=== PATIENT | female | born 1985 | race Caucasian/White ===

== ENCOUNTER → 2017-02-19 | Outpatient (CLI) | payer MEDICARE, MEDICAID ==
--- NOTE | 2017-02-19 09:07 | RADIOLOGY REPORT (SQ) ---
EXAM DESCRIPTION: U/S ABDOMEN LIMITED W/O DOP COMPLETED DATE/TIME: 02/19/2017 8:23 am REASON FOR STUDY: ABN LFT (R94.5) R94.5 ABNORMAL RESULTS OF LIVER FUNCTION STUDIES COMPARISON: None. TECHNIQUE: Dynamic and static grayscale images acquired of the abdomen and recorded on PACS. Additio nal selected color Doppler and spectral images recorded. LIMITATIONS: None. FINDINGS: PANCREAS: No masses. Visualized pancreatic duct normal caliber. LIVER: No masses. Echotexture normal. LIVER VASCULATURE: Normal directional flow of the main portal vein and hepatic veins. GALLBLADDER: No stones. Normal wall thickness. No pericholecystic fluid. ULTRASOUND-DETECTED GEORGE'S SIGN: Negative. INTRAHEPATIC DUCTS AND COMMON DUCT: CBD and intrahepatic ducts normal caliber. No filling defects. INFERIOR VENA CAVA: Normal flow. AORTA: No aneurysm. RIGHT KIDNEY: Normal size. Normal echogenicity. No solid or suspicious masses. No hydronephrosis. No calcifications. PERITONEAL AND RIGHT PLEURAL SPACE: No ascites or effusions. OTHER: No other significant findings. IMPRESSION: NORMAL RIGHT UPPER QUADRANT ULTRASOUND. TECHNICAL DOCUMENTATION: JOB ID: [id number] [employer]- All Rights Reserved
== END ==
LOC: RAD 07:57
PROVIDERS: ATTEND Family Medicine
DX: R94.5 Abnormal results of liver function studies (principal)
CPT/HCPCS: 76705

== ENCOUNTER → 2017-10-29 | Outpatient (CLI) | payer MEDICARE, MEDICAID ==
--- NOTE | 2017-10-29 16:21 | RADIOLOGY REPORT (SQ) ---
EXAM DESCRIPTION: FOOT RIGHT COMPLETE COMPLETED DATE/TIME: 10/29/2017 2:11 pm REASON FOR STUDY: CONTUSION OF RIGHT FOOT, INITIAL ENCOUNTER S90.31XA CONTUSION OF RIGHT FOOT, INIT IAL ENCOUNTER COMPARISON: None. NUMBER OF VIEWS: Three views. TECHNIQUE: AP, lateral and oblique radiographic images acquired of the right foot. LIMITATIONS: None. FINDINGS: MINERALIZATION: Osteopenia. BONES: No acute fracture. Hindfoot fusion with orthopedic hardware. JOINTS: No effusions. SOFT TISSUES: No soft tissue swelling. No foreign body. OTHER: No other significant finding. IMPRESSION: No acute fracture. TECHNICAL DOCUMENTATION: JOB ID: [id number] [employer]- All Rights Reserved Reading location - IP/workstation name: [email or web address]
== END ==
LOC: OD 13:49
PROVIDERS: ATTEND Family Medicine
DX: S90.31XA Contusion of right foot, initial encounter (principal); X58.XXXA Exposure to other specified factors, initial encounter

== ENCOUNTER 2018-11-25 12:07 | Emergency (ER) | payer MEDICARE, MEDICAID ==
--- NOTE | 2018-11-25 14:02 | ER Document Report ---
ED Medical Screen (RME) - General Chief Complaint: Nausea Stated Complaint: FEVER Time Seen by Provider: 11/25/18 13:42 Primary Care Provider: AYUSH CARMONA MD [Primary Care Provider] - Follow up as needed TRAVEL OUTSIDE OF THE [place] IN LAST 30 DAYS: No - HPI Notes: 11/25/18 13:58 Patient is a 33-year-old female with a history of cerebral palsy, hypothyroidism, epilepsy who presents with online facilitator and guardian for concern of nausea, gagging, decreased p.o. intake, not taking her medicines for the past couple days with a fever yesterday as well. Guardian states that sometimes they cannot tell if this is just behavior or if something is wrong and was sent here by Dr. Carmona's office. I have treated and performed a rapid initial assessment of this patient. A comprehensive ED assessment and evaluation of the patient, analysis of test results and completion of medical decision making process will be conducted by additional ED providers. Pt strapped in WC and not able to do much of an eval at this time. Also need to get a rectal temp once in a bed. PHYSICAL EXAMINATION: GENERAL: Well-appearing, well-nourished and in no acute distress. Alert. LUNGS: Breath sounds clear to auscultation bilaterally and equal. No wheezes rales or rhonchi. HEART: Regular rate and rhythm without murmurs, rubs, gallops. - Related Data Allergies/Adverse Reactions: amoxicillin [From Augmentin] Allergy (Verified 11/25/18 12:10) clavulanic acid [From Augmentin] Allergy (Verified 11/25/18 12:10) codeine Allergy (Verified 11/25/18 12:10) lactulose Allergy (Verified 11/25/18 12:10) latex Allergy (Verified 11/25/18 12:10) morphine Allergy (Verified 11/25/18 12:10) Past Medical History Neurological Medical History: Reports: Hx Seizures Renal/ Medical History: Denies: Hx Peritoneal Dialysis Physical Exam - Vital signs Vitals: Pulse Resp BP Pulse Ox 134 H 25 H 163/96 H 96 11/25/18 12:21 11/25/18 12:21 11/25/18 12:21 11/25/18 12:21 Course - Vital Signs Vital signs: Temp Pulse Resp BP Pulse Ox 134 H 25 H 163/96 H 96 11/25/18 12:21 11/25/18 12:21 11/25/18 12:21 11/25/18 12:21 Doctor's Discharge - Discharge Referrals: AYUSH CARMONA MD [Primary Care Provider] - Follow up as needed
[2018-11-25 14:26] LABS: ABSOLUTE LYMPHOCYTES (AUTO) 1.4 10^3/uL (0.5-4.7); ABSOLUTE MONOCYTES (AUTO) 0.7 10^3/uL (0.1-1.4); ABSOLUTE NEUT (AUTO) 6.1 10^3/uL (1.7-8.2); BASOPHILS % (AUTO) 0.3 % (0-2); EOSINOPHILS % (AUTO) 0.1 % (0-6); HEMATOCRIT 39.1 % (36.0-47.0); HEMOGLOBIN 13.3 g/dL (12.0-15.5); MEAN CORPUSCULAR HEMOGLOBIN 30.3 pg (27.0-33.4); MEAN CORPUSCULAR HGB CONC 33.9 g/dL (32.0-36.0); MEAN CORPUSCULAR VOLUME 89 fl (80-97); MONOCYTES % (AUTO) 8.1 % (3-13); PLATELET COUNT 187 10^3/uL (150-450); RED BLOOD COUNT 4.38 10^6/uL (3.72-5.28); RED CELL DISTRIBUTION WIDTH 13.6 % (11.5-14.0); SEGMENTED NEUTROPHILS % (AUTO) 74.5 % (42-78); TOTAL CELLS COUNTED % (AUTO) 100 %; WHITE BLOOD COUNT 8.3 10^3/uL (4.0-10.5)
--- NOTE | 2018-11-25 14:39 | RADIOLOGY REPORT (SQ) ---
EXAM DESCRIPTION: CHEST 2 VIEWS COMPLETED DATE/TIME: 11/25/2018 2:26 pm REASON FOR STUDY: Cerebral palsy, fever yesterday, inc HR COMPARISON: None. EXAM PARAMETERS: NUMBER OF VIEWS: two views TECHNIQUE: Digital Frontal and Lateral radiographic views of the chest acquired. RADIATION DOSE: NA LIMITATIONS: none FINDINGS: LUNGS AND PLEURA: No opacities, masses or pneumothorax. No pleural effusion. MEDIASTINUM AND HILAR STRUCTURES: No masses or contour abnormalities. HEART AND VASCULAR STRUCTURES: Heart normal size. No evidence for failure. BONES: No acute findings. HARDWARE: None in the chest. OTHER: No other significant finding. IMPRESSION: No acute abnormality of the lungs. No focal airspace opacity. TECHNICAL DOCUMENTATION: JOB ID: [id number] [employer]- All Rights Reserved Reading location - IP/workstation name: [email or web address]
[2018-11-25 14:48] LABS: ALANINE AMINOTRANSFERASE 160 U/L (9-52); ALBUMIN 5.1 g/dL (3.5-5.0); ALKALINE PHOSPHATASE 96 U/L (38-126); ANION GAP 15 (5-19); ASPARTATE AMINO TRANSFERASE 635 U/L (14-36); BILIRUBIN,DIRECT 0.3 mg/dL (0.0-0.4); BILIRUBIN,TOTAL 0.7 mg/dL (0.2-1.3); BLOOD UREA NITROGEN 14 mg/dL (7-20); CALCIUM 10.5 mg/dL (8.4-10.2); CARBON DIOXIDE 28 mmol/L (22-30); CHLORIDE 103 mmol/L (98-107); GLUCOSE 207 mg/dL (75-110); POTASSIUM 3.8 mmol/L (3.6-5.0); SODIUM 146.1 mmol/L (137-145); TOTAL PROTEIN 8.2 g/dL (6.3-8.2)
[2018-11-25 17:27] LABS: APPEARANCE,URINE SLIGHTLY-CLOUDY; BILIRUBIN,URINE NEGATIVE (NEGATIVE); COLOR,URINE YELLOW; GLUCOSE, URINE 50 mg/dL (NEGATIVE); KETONES,URINE 80 mg/dL (NEGATIVE); LEUKOCYTE ESTERASE,URINE NEGATIVE (NEGATIVE); NITRITE,URINE POSITIVE (NEGATIVE); PROTEIN,URINE 100 mg/dL (NEGATIVE); URINE SPECIFIC GRAVITY 1.025; UROBILINOGEN,URINE NEGATIVE mg/dL (<2.0)
[2018-11-25] MEDS ORDERED: NORMAL SALINE 1000 ML 500 ML IV ONE (18:37)
--- NOTE | 2018-11-25 19:00 | RADIOLOGY REPORT (SQ) ---
EXAM DESCRIPTION: U/S ABDOMEN LIMITED W/O DOP COMPLETED DATE/TIME: 11/25/2018 6:52 pm REASON FOR STUDY: transaminitis, nausea/vomiting COMPARISON: 02/19/2017 TECHNIQUE: Dynamic and static grayscale images acquired of the abdomen and recorded on PACS. Ashkan puentes selected color Doppler and spectral images recorded. LIMITATIONS: None. FINDINGS: PANCREAS: No masses. Visualized pancreatic duct normal caliber. LIVER: No masses. Echotexture normal. LIVER VASCULATURE: Normal directional flow of the main portal vein and hepatic veins. GALLBLADDER: No stones. Normal wall thickness. No pericholecystic fluid. ULTRASOUND-DETECTED GEORGE'S SIGN: Negative. INTRAHEPATIC DUCTS AND COMMON DUCT: CBD and intrahepatic ducts normal caliber. No filling defects. INFERIOR VENA CAVA: Normal flow. AORTA: No aneurysm. RIGHT KIDNEY: Normal size. Normal echogenicity. No solid or suspicious masses. No hydronephrosis. No calcifications. PERITONEAL AND RIGHT PLEURAL SPACE: No ascites or effusions. OTHER: No other significant findings. IMPRESSION: NORMAL RIGHT UPPER QUADRANT ULTRASOUND. TECHNICAL DOCUMENTATION: JOB ID: [id number] [employer]- All Rights Reserved Reading location - IP/workstation name: [email or web address]
--- NOTE | 2018-11-25 20:30 | ER Document Report ---
ED General - General Chief Complaint: Nausea Stated Complaint: FEVER Time Seen by Provider: 11/25/18 13:42 Primary Care Provider: AYUSH CARMONA MD [Primary Care Provider] - 11/28/18 Cannot obtain history due to: Mentally challenged Notes: Patient is a 33-year-old female with past medical history of cerebral palsy, epilepsy, lives at [facility] presents with staff from the facility due to con cerns of temperature of 100.4 yesterday as well as some gagging, and refusal to take her normal p.o. intake. Staff does report that this is happened on multiple occasions with the patient, she was seen by her primary care doctor today and referred to the emergency department for further evaluation. Patient herself is unable to provide meaningful history severely limiting the ability to obtain additional history components. Staff at the bedside does report that symptoms seem to mostly resolved as the patient is eating and drinking here without any difficulty. TRAVEL OUTSIDE OF THE [place] IN LAST 30 DAYS: No - Related Data Allergies/Adverse Reactions: amoxicillin [From Augmentin] Allergy (Verified 11/25/18 12:10) clavulanic acid [From Augmentin] Allergy (Verified 11/25/18 12:10) codeine Allergy (Verified 11/25/18 12:10) lactulose Allergy (Verified 11/25/18 12:10) latex Allergy (Verified 11/25/18 12:10) morphine Allergy (Verified 11/25/18 12:10) Past Medical History - General Information source: Dr. Camacho, Outside Facility Records Cannot obtain history due to: Mentally challenged - Social History Smoking Status: Never Smoker Frequency of alcohol use: None Drug Abuse: None Lives with: Residential Family History: Reviewed & Not Pertinent Patient has suicidal ideation: No Patient has homicidal ideation: No Neurological Medical History: Reports: Hx Seizures Renal/ Medical History: Denies: Hx Peritoneal Dialysis Review of Systems - Review of Systems -: Yes ROS unobtainable due to patient's medical condition Physical Exam - Vital signs Vitals: Pulse Resp BP Pulse Ox 134 H 25 H 163/96 H 96 11/25/18 12:21 11/25/18 12:21 11/25/18 12:21 11/25/18 12:21 Interpretation: Hypertensive, Tachycardic Notes: PHYSICAL EXAMINATION: GENERAL: Frail female, in no overt distress. HEAD: Atraumatic, normocephalic. EYES: sclera anicteric, conjunctiva are normal. ENT: nares patent, oropharynx clear without exudates. Moderately dry mucous membranes. NECK: supple without lymphadenopathy LUNGS: Breath sounds clear to auscultation bilaterally and equal. No wheezes rales or rhonchi. HEART: Regular tachycardia without murmurs ABDOMEN: Soft, nontender, normoactive bowel sounds. No guarding, no rebound. No masses appreciated. EXTREMITIES: no pitting or edema. No cyanosis. PSYCH: Nonverbal, at baseline per staff at bedside SKIN: Warm, Dry, normal turgor, no rashes or lesions noted. Course - Re-evaluation Re-evalutation: 11/25/18 20:26 Patient with history of CP, epilepsy, presents due to concerns of increased episodes of gagging, decreased p.o. intake, temp to 100.4 yesterday. Referred from primary care doctor's office. On exam the patient has no focal abdominal tenderness, rebound or guarding. Her labs are notable for LFT derangements and a right upper quadrant ultrasound does not reveal any evidence of acute cholecystitis, dilated common bile duct, or pericholecystic fluid. No evidence of fatty liver. Patient is eating and drinking here in the emergency room with any difficulty and staff with her states that this is her current baseline and feel that she is doing well. I did discuss this case with Dr. Carmona. We reviewed that in order to get CT imaging or MRCP the patient would have to undergo general anesthesia with intubation as staff at the bedside who knows the patient very well and been caring for her for more than 20 years state that she required general anesthesia for something as simple as a Mirena change out. They state that she will not sit still under any context and would require significant sedation for these imaging procedures. Given the significant risks associated with this endeavor particular given that the patient is currently acting at her baseline per staff without any fever, leukocytosis and no obvious signs of common bile duct obstruction on current work-up I believe that the patient can follow-up and have a redraw of her LFTs on Wednesday. I did discuss this with Dr. Carmona who is very much so in agreement states he will see the patient tomorrow when he goes to the facility where she stays and they will redraw labs on Wednesday as well as have a GI referral completed. - Vital Signs Vital signs: Temp Pulse Resp BP Pulse Ox 98.9 F 122 H 16 133/74 H 97 11/25/18 20:55 11/25/18 20:55 11/25/18 20:55 11/25/18 20:55 11/25/18 20:55 - Laboratory Result Diagrams: 11/25/18 14:05 11/25/18 14:05 Laboratory results interpreted by me: 11/25/18 11/25/18 11/25/18 14:05 17:05 19:34 Sodium 146.1 H Creatinine 0.41 L Glucose 207 H Lactic Acid 3.4 H Calcium 10.5 H AST 635 H ALT 160 H Albumin 5.1 H Urine Protein 100 H Urine Glucose (UA) 50 H Urine Ketones 80 H Urine Blood MODERATE H Urine Nitrite POSITIVE H - Diagnostic Test Radiology reviewed: Reports reviewed Discharge - Discharge Clinical Impression: Transaminitis, Gagging episode, Decreased oral intake Cerebral palsy Qualifiers: Cerebral palsy type: unspecified type Qualified Code(s): G80.9 - Cerebral palsy, unspecified Condition: Stable Disposition: HOME-SNF (ED ONLY) Additional Instructions: Dr. Carmona and I have discussed Ms. Edwards's case. The current plan is to have read all of her labs on Wednesday and have a referral to a GI physician. Please return to the emergency department if she begins vomiting, has fevers of greater than 101 F, appears to be in significant pain, or has any other symptoms that are concerning to you. Referrals: AYUSH CARMONA MD [Primary Care Provider] - 11/28/18
[2018-11-25 20:57] VITALS: BP 133/74
== END 2018-11-25 20:55 ==
LOC: ER 12:07
DX: R29.2 Abnormal reflex (principal); R74.0 Nonspecific elevation of levels of transaminase and lactic acid dehydrogenase [LDH]; R00.0 Tachycardia, unspecified; G80.9 Cerebral palsy, unspecified; Z88.0 Allergy status to penicillin; Z88.5 Allergy status to narcotic agent; Z91.040 Latex allergy status; Z88.8 Allergy status to other drugs, medicaments and biological substances
CPT/HCPCS: 36415; 71046; 76705; 80053; 81001; 83605; 84443; 85025; 87040; 87086; 87088; 87186; 99284

== ENCOUNTER → 2018-12-28 | Outpatient (CLI) | payer MEDICARE, MEDICAID | LOC: OD 15:36 | PROVIDERS: ATTEND Internal Medicine Gastroenterology | DX: R94.5 Abnormal results of liver function studies (principal) ==

== ENCOUNTER 2019-09-08 09:49 | Emergency (ER) | payer MEDICARE, MEDICAID ==
[2019-09-08 10:31] LABS: ABSOLUTE BASOPHILS # (AUTO) 0.1 10^3/uL (0.0-0.2); ABSOLUTE LYMPHOCYTES (AUTO) 1.1 10^3/uL (0.5-4.7); ABSOLUTE MONOCYTES (AUTO) 0.5 10^3/uL (0.1-1.4); ABSOLUTE NEUT (AUTO) 8.2 10^3/uL (1.7-8.2); BASOPHILS % (AUTO) 0.5 % (0-2); EOSINOPHILS % (AUTO) 0.1 % (0-6); HEMATOCRIT 37.4 % (36.0-47.0); LYMPHOCYTES % (AUTO) 11.2 % (13-45); MEAN CORPUSCULAR HEMOGLOBIN 31.6 pg (27.0-33.4); MEAN CORPUSCULAR HGB CONC 34.8 g/dL (32.0-36.0); MEAN CORPUSCULAR VOLUME 91 fl (80-97); MONOCYTES % (AUTO) 4.9 % (3-13); PLATELET COUNT 224 10^3/uL (150-450); RED BLOOD COUNT 4.12 10^6/uL (3.72-5.28); RED CELL DISTRIBUTION WIDTH 13.1 % (11.5-14.0); SEGMENTED NEUTROPHILS % (AUTO) 83.3 % (42-78); TOTAL CELLS COUNTED % (AUTO) 100 %; WHITE BLOOD COUNT 9.8 10^3/uL (4.0-10.5)
[2019-09-08 10:36] LABS: ALBUMIN 4.7 g/dL (3.5-5.0); ALKALINE PHOSPHATASE 78 U/L (38-126); ANION GAP 12 (5-19); ASPARTATE AMINO TRANSFERASE 31 U/L (14-36); BILIRUBIN,TOTAL 0.3 mg/dL (0.2-1.3); BLOOD UREA NITROGEN 15 mg/dL (7-20); CALCIUM 9.9 mg/dL (8.4-10.2); CARBON DIOXIDE 26 mmol/L (22-30); CHLORIDE 104 mmol/L (98-107); GLUCOSE 93 mg/dL (75-110); POTASSIUM 3.8 mmol/L (3.6-5.0); TOTAL PROTEIN 7.6 g/dL (6.3-8.2)
[2019-09-08 10:38] LABS: ALCOHOL < 10 mg/dL (NONE DETECTED)
[2019-09-08] MEDS ORDERED: LEVETIRACETAM 1000 MG/NACL-ISO 1,000 MG/100 ML RTUPB IV ONE (10:42)
[2019-09-08] MEDS ORDERED: NORMAL SALINE 500 ML IV ONE (10:42)
--- NOTE | 2019-09-08 10:49 | ER Document Report ---
ED General - General Chief Complaint: Seizure Stated Complaint: POSSIBLE SEIZURE Primary Care Provider: JAMES GUAJARDO MD [ACTIVE STAFF] - Follow up as needed Mode of Arrival: Medic Information source: Legal Guardian, Emergency Med Personnel Cannot obtain history due to: Mentally challenged, Altered mental status Notes: 34-year-old female with epilepsy, cerebral palsy presents via EMS after 3 witnessed seizures today. Patient takes Keppra, Vimpat and reportedly only has 1-2 seizures per year. Per the caregiver who is at the bedside patient had a recent decrease in her dosing of Keppra. She has had some rhinorrhea but no fever. Caregiver denies any coughing, vomiting, diarrhea. Patient is nonverbal at baseline. Can propel herself in a wheelchair but is nonambulatory. TRAVEL OUTSIDE OF THE [place] IN LAST 30 DAYS: No - HPI Onset: This morning Onset/Duration: Sudden, Gone Associated symptoms: denies: Nonproductive cough, Fever, Vomiting - Related Data Allergies/Adverse Reactions: amoxicillin [From Augmentin] Allergy (Verified 09/08/19 11:15) clavulanic acid [From Augmentin] Allergy (Verified 09/08/19 11:15) codeine Allergy (Verified 09/08/19 11:15) lactulose Allergy (Verified 09/08/19 11:15) latex Allergy (Verified 09/08/19 11:15) morphine Allergy (Verified 09/08/19 11:15) Past Medical History - General Information source: Legal Guardian, Outside Facility Records - Social History Smoking Status: Never Smoker Frequency of alcohol use: None Drug Abuse: None Lives with: Senior Living Family History: Reviewed & Not Pertinent Patient has suicidal ideation: No Patient has homicidal ideation: No Neurological Medical History: Reports: Hx Seizures Renal/ Medical History: Denies: Hx Peritoneal Dialysis Review of Systems - Review of Systems -: Yes ROS unobtainable due to patient's medical condition Constitutional: denies: Fever Gastrointestinal: denies: Diarrhea, Vomiting Skin: denies: Rash Neurological/Psychological: Seizure Physical Exam - Vital signs Vitals: Resp 16 09/08/19 09:52 - Notes Notes: PHYSICAL EXAMINATION: GENERAL: Well-appearing, well-nourished and in no acute distress. HEAD: Atraumatic, normocephalic. EYES: Pupils equal round and reactive to light, extraocular movements intact, conjunctiva are normal. ENT: Nares patent, oropharynx clear without exudates. Moist mucous membranes. NECK: Normal range of motion, supple without lymphadenopathy LUNGS: Breath sounds clear to auscultation bilaterally and equal. No wheezes rales or rhonchi. HEART: Regular rate and rhythm without murmurs ABDOMEN: Soft, nontender, nondistended abdomen. No guarding, no rebound. No masses appreciated. Female : deferred Musculoskeletal: Normal range of motion, no pitting or edema. No cyanosis. NEUROLOGICAL: Cranial nerves grossly intact. Normal sensory, motor exams PSYCH: Normal mood, normal affect. SKIN: Warm, Dry, normal turgor, no rashes or lesions noted. Course - Re-evaluation Re-evalutation: Laboratory 09/08/19 09/08/19 09/08/19 09:55 09:55 09:55 WBC 9.8 RBC 4.12 Hgb 13.0 Hct 37.4 MCV 91 MCH 31.6 MCHC 34.8 RDW 13.1 Plt Count 224 Lymph % (Auto) 11.2 L [place] % (Auto) 4.9 Eos % (Auto) 0.1 Baso % (Auto) 0.5 Absolute Neuts (auto) 8.2 Absolute Lymphs (auto) 1.1 Absolute Monos (auto) 0.5 Absolute Eos (auto) 0.0 Absolute Basos (auto) 0.1 Seg Neutrophils % 83.3 H Sodium 142.3 Potassium 3.8 Chloride 104 Carbon Dioxide 26 Anion Gap 12 BUN 15 Creatinine 0.55 Est GFR ( Amer) > 60 Est GFR (MDRD) Non-Af > 60 Glucose 93 Calcium 9.9 Magnesium 2.4 H Total Bilirubin 0.3 Direct Bilirubin 0.0 Neonat Total Bilirubin Not Reportable Neonat Direct Bilirubin Not Reportable Neonat Indirect Bili Not Reportable AST 31 ALT 32 Alkaline Phosphatase 78 Total Protein 7.6 Albumin 4.7 Serum HCG, Qual NEGATIVE Urine Color Urine Appearance Urine pH Ur Specific [place] Urine Protein Urine Glucose (UA) Urine Ketones Urine Blood Urine Nitrite Urine Bilirubin Urine Urobilinogen Ur Leukocyte Esterase Urine WBC (Auto) Urine RBC (Auto) U Hyaline Cast (Auto) Urine Bacteria (Auto) Granular Casts (Auto) Urine Mucus (Auto) Urine Ascorbic Acid Urine Opiates Screen Urine Methadone Screen Ur Barbiturates Screen Ur Phencyclidine Scrn Ur Amphetamines Screen U Benzodiazepines Scrn Urine Cocaine Screen U Marijuana (THC) Screen Serum Alcohol < 10 09/08/19 09/08/19 10:02 10:02 WBC RBC Hgb Hct MCV MCH MCHC RDW Plt Count Lymph % (Auto) [place] % (Auto) Eos % (Auto) Baso % (Auto) Absolute Neuts (auto) Absolute Lymphs (auto) Absolute Monos (auto) Absolute Eos (auto) Absolute Basos (auto) Seg Neutrophils % Sodium Potassium Chloride Carbon Dioxide Anion Gap BUN Creatinine Est GFR ( Amer) Est GFR (MDRD) Non-Af Glucose Calcium Magnesium Total Bilirubin Direct Bilirubin Neonat Total Bilirubin Neonat Direct Bilirubin Neonat Indirect Bili AST ALT Alkaline Phosphatase Total Protein Albumin Serum HCG, Qual Urine Color YELLOW Urine Appearance SLIGHTLY-CLOUDY Urine pH 5.0 Ur Specific [place] 1.019 Urine Protein 100 H Urine Glucose (UA) NEGATIVE Urine Ketones NEGATIVE Urine Blood SMALL H Urine Nitrite POSITIVE H Urine Bilirubin NEGATIVE Urine Urobilinogen NEGATIVE Ur Leukocyte Esterase NEGATIVE Urine WBC (Auto) 2 Urine RBC (Auto) 0 U Hyaline Cast (Auto) 15 Urine Bacteria (Auto) 1+ Granular Casts (Auto) 6 Urine Mucus (Auto) FEW Urine Ascorbic Acid 20 H Urine Opiates Screen NEGATIVE Urine Methadone Screen NEGATIVE Ur Barbiturates Screen NEGATIVE Ur Phencyclidine Scrn NEGATIVE Ur Amphetamines Screen NEGATIVE U Benzodiazepines Scrn UNCONFIRMED POSITIVE Urine Cocaine Screen NEGATIVE U Marijuana (THC) Screen NEGATIVE Serum Alcohol Temp Pulse Resp BP Pulse Ox 20 100/84 92 09/08/19 10:31 09/08/19 10:31 09/08/19 10:31 09/08/19 12:06 Presentation of well-appearing patient after having a seizure. Patient has a known history of seizures. No obvious trigger for today's episode. The patient has returned to baseline without intervention. No focal neurologic deficits. No infectious symptoms, vital sign abnormalities, or evidence of trauma. No indication for laboratories or imaging based on reassuring evaluation and known history of seizures. The patient will be discharged home with recommendations for close follow-up with primary care as well as their neurologist. Return precautions have been reviewed and patient has verbalized understanding. 09/08/19 12:07 Patient was evaluated and treated as appropriate for the patient's presenting symptoms and complaint, with consideration of any critical or life threatening conditions that may be associated with their obtained history and exam as noted above. All results were discussed with patient and her healthcare consultant. Patient provided the opportunity to ask questions, and express concerns. Patient was educated on treatments based on their presumed diagnosis as noted above. At this time we will discharge the patient with return precautions and follow-up recommendations. Verbal discharge instructions given a the bedside. Medication warnings reviewed. Patient is in agreement with this plan and has verbalized understanding of return precautions. After careful consideration I feel that that patient can be safely discharged from the emergency department, they were advised to followup with a primary care physician in 2-3 days. Dictation on this chart was performed using voice recognition software and may result in unintended grammatical, spelling, syntax or errors. - Vital Signs Vital signs: Temp Pulse Resp BP Pulse Ox 20 100/84 92 09/08/19 10:31 09/08/19 10:31 09/08/19 10:31 - Laboratory Result Diagrams: 09/08/19 09:55 09/08/19 09:55 Laboratory results interpreted by me: 09/08/19 09/08/19 09/08/19 09:55 09:55 10:02 Lymph % (Auto) 11.2 L Seg Neutrophils % 83.3 H Magnesium 2.4 H Urine Protein 100 H Urine Blood SMALL H Urine Nitrite POSITIVE H Urine Ascorbic Acid 20 H Discharge - Discharge Clinical Impression: Seizure Condition: Good Disposition: HOME, SELF-CARE Instructions: Seizure, Known Epileptic ([facility]) Additional Instructions: Follow up with your physicianin, neurologist in 24-72 hours for further care or return to the ED IMMEDIATELY if symptoms worsen or you have any concerns. If you cannot afford to follow up with your primary care physician a list of low cost clinics have been provided at the end of your discharge papers as well. Most prescribed medications have multiple side effects. The safest thing to do is when filling your prescription speak to your pharmacist regarding possible interactions with your normal home medications and over the counter medications such as Ibuprofen, Tylenol, Benadryl. If you experience any symptoms that cause you discomfort or concern you should discontinue the medication immediately and return to the emergency room or call your primary care physician. Referrals: JAMES GUAJARDO MD [ACTIVE STAFF] - Follow up as needed
[2019-09-08 10:56] LABS: APPEARANCE,URINE SLIGHTLY-CLOUDY; BILIRUBIN,URINE NEGATIVE (NEGATIVE); COLOR,URINE YELLOW; GLUCOSE, URINE NEGATIVE (NEGATIVE); KETONES,URINE NEGATIVE (NEGATIVE); LEUKOCYTE ESTERASE,URINE NEGATIVE (NEGATIVE); NITRITE,URINE POSITIVE (NEGATIVE); PROTEIN,URINE 100 mg/dL (NEGATIVE); URINE SPECIFIC GRAVITY 1.019; UROBILINOGEN,URINE NEGATIVE mg/dL (<2.0)
[2019-09-08 11:20] LABS: URINE AMPHETAMINES SCREEN NEGATIVE; URINE BARBITURATES SCREEN NEGATIVE; URINE BENZODIAZEPINES SCREEN UNCONFIRMED POSITIVE; URINE COCAINE SCREEN NEGATIVE; URINE MARIJUANA (THC) SCREEN NEGATIVE; URINE METHADONE SCREEN NEGATIVE; URINE PHENCYCLIDINE SCREEN NEGATIVE
[2019-09-08 14:39] VITALS: BP 99/50
== END 2019-09-08 14:37 | disposition home or self-care (01) ==
LOC: ER 09:49
DX: R56.9 Unspecified convulsions (principal); J34.89 Other specified disorders of nose and nasal sinuses; Z79.899 Other long term (current) drug therapy; Z88.8 Allergy status to other drugs, medicaments and biological substances; Z88.1 Allergy status to other antibiotic agents
CPT/HCPCS: 99284; 96361; 96365; 36415; 87086; 80177; 80307 ×2; 83735; 84703; 85025; 87088; 80053; 81001; 87186; J7040; J1953

== ENCOUNTER 2020-02-05 23:43 | Emergency (ER) | payer MEDICARE, MEDICAID ==
[2020-02-05] MEDS ORDERED: LORAZEPAM INJ 2 MG/1 ML VIAL IV ONE (23:52)
[2020-02-06] MEDS ORDERED: NORMAL SALINE 1000 ML 1,000 ML IV ONE (00:02)
[2020-02-06] MEDS ORDERED: LORAZEPAM INJ 2 MG/1 ML VIAL IV ONE ×3 (00:10→02:46)
[2020-02-06] MEDS ORDERED: VALPROATE SODIUM INJ/PF 500 MG/5 ML SDV IV ONE (00:11)
[2020-02-06] MEDS ORDERED: MIDAZOLAM 2 MG/2 ML INJ ONE (00:47)
[2020-02-06] MEDS ORDERED: MIDAZOLAM 2 MG/2 ML INJ IM ONE (00:52)
[2020-02-06] MEDS ORDERED: MIDAZOLAM HCL INJ 5 MG/1 ML VIAL ONE ×2 (00:52→02:01)
[2020-02-06 00:58] LABS: ABSOLUTE NEUT (AUTO) 9.6 10^3/uL (1.7-8.2); BASOPHILS % (AUTO) 0.4 % (0-2); HEMATOCRIT 38.3 % (36.0-47.0); HEMOGLOBIN 12.8 g/dL (12.0-15.5); LYMPHOCYTES % (AUTO) 8.7 % (13-45); MEAN CORPUSCULAR HEMOGLOBIN 30.3 pg (27.0-33.4); MEAN CORPUSCULAR HGB CONC 33.4 g/dL (32.0-36.0); MEAN CORPUSCULAR VOLUME 91 fl (80-97); MONOCYTES % (AUTO) 8.4 % (3-13); PLATELET COUNT 167 10^3/uL (150-450); RED BLOOD COUNT 4.23 10^6/uL (3.72-5.28); RED CELL DISTRIBUTION WIDTH 13.1 % (11.5-14.0); SEGMENTED NEUTROPHILS % (AUTO) 82.5 % (42-78); TOTAL CELLS COUNTED % (AUTO) 100 %; WHITE BLOOD COUNT 11.7 10^3/uL (4.0-10.5)
[2020-02-06] MEDS ORDERED: SUCCINYLCHOLINE CHLORIDE INJ 200 MG/10 ML VIAL ONE (01:00)
[2020-02-06] MEDS ORDERED: ROCURONIUM BROMIDE INJ 50 MG/5 ML VIAL IV ONE ×2 (01:00→02:11)
[2020-02-06 01:03] LABS: AMORPHOUS SEDIMENT,URINE TRACE /HPF; APPEARANCE,URINE TURBID; BILIRUBIN,URINE NEGATIVE (NEGATIVE); COLOR,URINE YELLOW; GLUCOSE, URINE NEGATIVE (NEGATIVE); KETONES,URINE NEGATIVE (NEGATIVE); LEUKOCYTE ESTERASE,URINE TRACE (NEGATIVE); NITRITE,URINE NEGATIVE (NEGATIVE); PROTEIN,URINE 30 mg/dL (NEGATIVE); URINE SPECIFIC GRAVITY 1.021; UROBILINOGEN,URINE NEGATIVE mg/dL (<2.0)
--- NOTE | 2020-02-06 01:03 | ER Document Report ---
ED General - General Stated Complaint: SEIZURES Time Seen by Provider: 02/05/20 23:55 Primary Care Provider: AYUSH CARMONA MD [Primary Care Provider] - Follow up as needed TRAVEL OUTSIDE OF THE [place] IN LAST 30 DAYS: No - HPI Notes: Patient is a 34-year-old female brought to the emergency department for evaluation by EMS. History is obtained from EMS and caregiver. Patient has a history of cerebral palsy as well as seizure disorder secondary to anoxic brain injury at . She had a seizure at [age]. She has had multiple seizures without having significant post ictal periods. [facility] She was picked up by EMS, given intranasal Versed then IV Versed. She continued to have intermittent seizures. - Related Data Allergies/Adverse Reactions: amoxicillin [From Augmentin] Allergy (Verified 09/08/19 11:15) clavulanic acid [From Augmentin] Allergy (Verified 09/08/19 11:15) codeine Allergy (Verified 09/08/19 11:15) lactulose Allergy (Verified 09/08/19 11:15) latex Allergy (Verified 09/08/19 11:15) morphine Allergy (Verified 09/08/19 11:15) Home Medications: Zoloft is milligrams daily, Cogentin 1 mg twice daily, Haldol 5 mg twice daily, Vistaril 25 mg twice daily, Vimpat 100 mg twice daily, Keppra 1250 mg twice daily, Synthroid 50 mcg daily, Claritin 10 mg daily, Nasacort 2 sprays each nostril daily, omeprazole 20 mg daily, Ativan 0.5 mg twice daily, Diastat as needed, Zofran as needed, MiraLAX as needed, Motrin as needed, vitamin D Past Medical History - General Information source: Emergency Med Personnel - Social History Smoking Status: Never Smoker Family History: Other - Mother with Whit's disease Neurological Medical History: Reports: Hx Seizures Renal/ Medical History: Denies: Hx Peritoneal Dialysis Review of Systems - Review of Systems -: Yes ROS unobtainable due to patient's medical condition Course - Re-evaluation Re-evalutation: 02/06/20 03:04 Patient presents to the emergency department for evaluation. She had multiple seizures prior to arrival. On arrival here, the patient was having deviation of her eyes to the left, twitching motions of the right upper and right lower extremity, consistent with focal seizures. Please see nursing notes for timing of administration, but overall the patient received multiple doses of Ativan, Versed. She was loaded with valproic acid. She had received Keppra in route. And about the patient's respiratory status in light of all of these benzodiazepines being administered. As a result, the patient was intubated. Please see separate procedure note. Patient tolerated this well. ET tube was found to be low, so it was withdrawn. Patient oxygenated well. She would intermittently break with her seizure activity, but repeatedly had return of the seizure activity. She never returned to baseline. Given her continued seizures, or inability perform EEG continuously here, decision was made to transfer the patient. I spoke with HELLEN Stratton on for the [facility]. She accepted the patient on behalf of Dr. León. - Laboratory Result Diagrams: 02/06/20 00:44 02/06/20 00:44 Laboratory results interpreted by me: 02/06/20 02/06/20 02/06/20 00:30 00:44 00:44 WBC 11.7 H Lymph % (Auto) 8.7 L Absolute Neuts (auto) 9.6 H Seg Neutrophils % 82.5 H Sodium 145.7 H Chloride 112 H AST 40 H Urine Protein 30 H Ur Leukocyte Esterase TRACE H Urine Ascorbic Acid 40 H Procedures - Intubation Orotracheal Airway evaluation: Abnormal 3-3-2 rule, Neck immobility Medications: Succinylcholine, Diprivan Intubation method: Orotracheal Blade type: Santos Blade size: 3 Equipment used: Glidescope ETT size: 7.0 Breath Sounds after Intubation: Equal End tidal CO2 confirmed: Yes Post Intubation Xray: Yes - Additional Procedures IV insertion Time performed: 03:16 Additional Procedures: IV insertion Notes: 02/06/20 03:19 Patient had lack of IV access. Decision was made to proceed with right external jugular IV placement. The area was cleansed with ChloraPrep. The patient was placed in a slight Trendelenburg for the vein to be visualized. The vein was cannulated. It david and flushed well. No complications. Critical Care Note - Critical Care Note Total time excluding time spent on procedures (mins): 60 Discharge - Discharge Clinical Impression: Status epilepticus Condition: Stable Disposition: [facility] Admitting Provider: [facility] Unit Admitted: ICU Referrals: AYUSH CARMONA MD [Primary Care Provider] - Follow up as needed
[2020-02-06] MEDS ORDERED: SUCCINYLCHOLINE CHLORIDE INJ 200 MG/10 ML VIAL IV ONE (01:09)
[2020-02-06] MEDS ORDERED: PROPOFOL INJ 200 MG/20 ML VIAL IV ONE ×2 (01:10)
[2020-02-06 01:15] LABS: ALKALINE PHOSPHATASE 88 U/L (38-126); ANION GAP 11 (5-19); ASPARTATE AMINO TRANSFERASE 40 U/L (14-36); BILIRUBIN,TOTAL 0.3 mg/dL (0.2-1.3); BLOOD UREA NITROGEN 12 mg/dL (7-20); CALCIUM 9.4 mg/dL (8.4-10.2); CARBON DIOXIDE 23 mmol/L (22-30); CHLORIDE 112 mmol/L (98-107); GLUCOSE 93 mg/dL (75-110); POTASSIUM 3.7 mmol/L (3.6-5.0); TOTAL PROTEIN 7.2 g/dL (6.3-8.2)
[2020-02-06 01:30] LABS: URINE AMPHETAMINES SCREEN NEGATIVE; URINE BARBITURATES SCREEN NEGATIVE; URINE COCAINE SCREEN NEGATIVE; URINE MARIJUANA (THC) SCREEN NEGATIVE; URINE METHADONE SCREEN NEGATIVE; URINE PHENCYCLIDINE SCREEN NEGATIVE
[2020-02-06] MEDS ORDERED: MIDAZOLAM HCL INJ 5 MG/1 ML VIAL IM ONE (01:30)
[2020-02-06] MEDS ORDERED: LORAZEPAM INJ 2 MG/1 ML VIAL ONE (01:33)
[2020-02-06] MEDS ORDERED: MIDAZOLAM HCL 50 MG/100 ML RTUINJ IV PRN (01:39)
[2020-02-06 01:42] LABS: URINE BENZODIAZEPINES SCREEN UNCONFIRMED POSITIVE
[2020-02-06 01:43] LABS: ALBUMIN 4.4 g/dL (3.5-5.0); ALCOHOL < 10 mg/dL (NONE DETECTED)
[2020-02-06] MEDS ORDERED: MIDAZOLAM 2 MG/2 ML INJ IV ONE (02:00)
--- NOTE | 2020-02-06 02:39 | RADIOLOGY REPORT (SQ) ---
CHEST X-RAY 1 VIEW on 02/06/2020 at 2:07 AM CLINICAL INDICATION: ET tube placement COMPARISON: 11/25/2018 FINDINGS: ET tube tip is in the lower thoracic trachea only approximately 6 mm above the level of the anabella and pointed towards the right mainstem bronchus. Would recommend retraction of the ET tube by 2.5 cm. NG tube extends into the distal stomach. The lungs are clear. Cardiac, hilar and mediastinal contours are within normal limits. Pulmonary vascularity is within normal limits. IMPRESSION: ET tube tip is in the lower thoracic trachea and pointed towards the right mainstem bronchus only minimally above the level of the anabella. Recommend retraction by approximately 2.5 cm as above. Otherwise no acute disease.
[2020-02-06 03:50] VITALS: BP 107/68
== END 2020-02-06 04:20 | disposition short-term general hospital (02) ==
LOC: ER 23:43
DX: G40.901 Epilepsy, unspecified, not intractable, with status epilepticus (principal); G93.1 Anoxic brain damage, not elsewhere classified; G80.9 Cerebral palsy, unspecified; Z79.899 Other long term (current) drug therapy; Z88.0 Allergy status to penicillin; Z88.6 Allergy status to analgesic agent; Z88.5 Allergy status to narcotic agent; Z91.040 Latex allergy status; Z88.8 Allergy status to other drugs, medicaments and biological substances
CPT/HCPCS: 31500; 96376; 99291; 96372; 51702; 96375; 96365; 96366; 36415; 80307 ×2; 83735; 84703; 85025; 80053; 81001; 71045; 94660; J3490 ×2; J2060 ×2; J2250 ×2; J0330; J7030; J2704